=== PATIENT | female | born 1985 | race Hispanic/Latino ===

== ENCOUNTER 2017-04-03 20:15 | Emergency (ER) | payer OTHER ==
[2017-04-03 20:25] VITALS: BP 150/89; PULSE 90; RESP 18; TEMP 98.2; O2SAT 98
[2017-04-03] MEDS ORDERED: Sodium Chloride 0.9% 1,000 ML IV STA (20:37)
--- NOTE | 2017-04-03 20:37 | ED PDOC ---
HPI: Headache Time Seen by Provider: 04/03/17 20:25 Chief Complaint (Nursing): Headache Chief Complaint (Provider): Head Injury History Per: Patient Additional Complaint(s): 32 yo female, no PMH, presents to ED for evaluation of a head injury. Pt states she was hit by a football 1 hour ago, no LOC. C/o headache and feeling "slower" . Pt currently eating Doritos in ED room. No episodes of nausea and vomiting. Past Medical History Reviewed: Nursing Documentation, Vital Signs Vital Signs: Last Vital Signs Temp 98.2 F 04/03/17 20:18 Pulse 90 04/03/17 20:18 Resp 18 04/03/17 20:18 BP 150/89 04/03/17 20:18 Pulse Ox 98 04/03/17 20:18 - Medical History PMH: No Chronic Diseases - Surgical History Surgical History: No Surg Hx - Family History Family History: States: No Known Family Hx - Living Arrangements Living Arrangements: With Family - Social History Current smoker - smoking cessation education provided: No Alcohol: Social Drugs: Denies - Home Medications Home Medications: Ambulatory Orders Medication Instructions Recorded Ibuprofen [Motrin] 600 mg PO Q6 #20 tab 04/03/17 - Allergies Allergies/Adverse Reactions: Allergies Allergy/AdvReac Type Severity Reaction Status Date / Time No Known Allergies Allergy Verified 04/03/17 20:18 - Laboratory Results Result Diagrams: 04/03/17 21:04 04/03/17 21:04 - ECG O2 Sat by Pulse Oximetry: 98 Medical Decision Making Medical Decision Making: IV access established and treatment initiated with IVF, Toradol and reglan Diagnostics reviewed with pt who demonstrated full understanding neuro exam remains non focal and Pt reports pain resolved 100% Stable for discharge at this time Disposition - Clinical Impression Clinical Impression: Head injury, Post concussion syndrome - Patient ED Disposition Is Patient to be Admitted: No - Disposition Disposition: Routine/Home Disposition Time: 21:45 Condition: STABLE Prescriptions: Ibuprofen [Motrin] 600 mg PO Q6 #20 tab Instructions: Head Injury (ED), Post Concussion Syndrome (ED) Forms: [facility] ([place]), [facility] ED School/Work Excuse
[2017-04-03 21:12] LABS: BASO # 0.1 K/uL (0.0-0.2); BASO % 0.6 % (0.0-2.0); EOS # 0.1 K/uL (0.0-0.7); EOS % 0.4 % (0.0-4.0); HEMATOCRIT 41.7 % (34.0-47.0); LYMPH # 2.8 K/uL (1.0-4.3); LYMPH % 19.4 % (20.0-40.0); MEAN CELL VOLUME 90.3 fl (81.0-99.0); MEAN CORPUSCULAR HEMOGLOBIN 30.2 pg (27.0-31.0); MEAN CORPUSCULAR HGB CONC 33.4 g/dL (33.0-37.0); MONO # 1.1 K/uL (0.0-0.8); MONO % 7.5 % (0.0-10.0); NEUT # 10.5 K/uL (1.8-7.0); NEUT % 72.1 % (50.0-75.0); RED CELL DISTRIBUTION WIDTH 13.3 % (11.5-14.5); WHITE BLOOD COUNT 14.6 K/uL (4.8-10.8)
[2017-04-03 21:37] LABS: ALB/GLOB RATIO 1.5 (1.0-2.1); ALKALINE PHOSPHATASE 56 U/L (38-126); ALT/SGPT 35 U/L (9-52); AST/SGOT 29 U/L (14-36); BILIRUBIN,TOTAL 0.6 mg/dl (0.2-1.3); BLOOD UREA NITROGEN 16 mg/dl (7-17); CALCIUM 9.9 mg/dL (8.4-10.2); CARBON DIOXIDE 23 mmol/L (22-30); CHLORIDE 104 mmol/L (98-107); GFR AFRICAN-AMERICAN > 60; GLUCOSE,RANDOM 89 mg/dL (65-105); POTASSIUM 3.8 MMOL/L (3.6-5.0); SODIUM 143 mmol/l (132-148); TOTAL PROTEIN 7.7 G/DL (6.3-8.2)
== END 2017-04-03 22:18 | disposition home or self-care (01) ==
LOC: H.ER 20:15
DX: F07.81 Postconcussional syndrome (principal); W22.8XXA Striking against or struck by other objects, initial encounter; Y92.321 Football field as the place of occurrence of the external cause
CPT/HCPCS: 80053; 81025; 85025; 96374; 99285; J2765; J7040

== ENCOUNTER 2017-04-07 16:04 | Emergency (ER) | payer OTHER ==
[2017-04-07 16:20] VITALS: BP 139/74; PULSE 74; RESP 16; TEMP 99; O2SAT 100
[2017-04-07] MEDS ORDERED: Sodium Chloride 0.9% 1,000 ML IV STA (16:35)
== END 2017-04-07 18:53 | disposition home or self-care (01) ==
LOC: H.ER 16:04
DX: F07.81 Postconcussional syndrome (principal); W22.8XXA Striking against or struck by other objects, initial encounter; Y92.321 Football field as the place of occurrence of the external cause
CPT/HCPCS: 70450; 81025; 96361; 96374; 96375; 99282; J1885; J2405; J7040